=== PATIENT | male | born 1960 | race Two or more races ===

== ENCOUNTER 2022-07-05 18:26 | Inpatient (IN) | payer OTHER ==
[~2022-07-05] VITALS: Ht 172.7 cm; Wt 70.0 kg
[2022-07-05] MEDS ORDERED: SODIUM CHLORIDE 0.9% 1,000 ML IV ONE ×2 (18:45)
[2022-07-05 19:54] LABS: Basophils # (auto) 0.1 10 ^3/uL (0-0.2); Basophils % (auto) 0.5 % (0.0-2.0); Eosinophils # (auto) 0.8 10 ^3/uL (0-0.8); Eosinophils % (auto) 7.1 % (0.0-7.0); Hematocrit 38.7 % (41.0-53.0); Hemoglobin 12.4 g/dL (13.5-17.5); Lymphocytes # (auto) 1.6 10 ^3/uL (0.4-5.4); Lymphocytes % (auto) 14.3 % (10.0-50.0); Mean Corpuscular Hemoglobin 29.5 pg (28.0-32.0); Mean Corpuscular Volume 92.2 fL (80.0-100.0); Monocytes # (auto) 0.7 10 ^3/uL (0-1.3); Monocytes % (auto) 6.2 % (0.0-12.0); Neutrophils # (auto) 8.1 10 ^3/uL (1.6-8.6); Neutrophils % (auto) 71.9 % (37.0-80.0); Nucleated Red Blood Cells % 0.1 %; Red Cell Distribution Width 17.2 % (11.8-14.3); White Blood Cell 11.3 10^3/uL (4.4-10.8)
[2022-07-05 20:09] LABS: Calcium 9.9 mg/dL (8.5-10.1); Potassium 4.3 mmol/L (3.5-5.1)
[2022-07-05 20:14] LABS: BUN/Creatinine Ratio 40.7; Bilirubin, Total 0.6 mg/dL (0.2-1.0)
[2022-07-05] MEDS ORDERED: MORPHINE SULFATE INJ 2 MG/ml SYRG IV PRN (23:45)
[2022-07-05] MEDS ORDERED: ONDANSETRON HCL 4 MG/2 ML VIAL IV PRN (23:45)
[2022-07-05] MEDS ORDERED: ACETAMINOPHEN 325 MG TAB PO PRN (23:45)
[2022-07-05] MEDS ORDERED: D5W/LACTATED RINGERS 1,000 ML IV SCH (23:45)
[2022-07-05] MEDS ORDERED: cefTRIAXone 1GM/50ML D5W 50 ML IV ONE (23:45)
[2022-07-05] MEDS ORDERED: ALBUMIN 25% 100 ML IV ONE (23:45)
[2022-07-05] MEDS ORDERED: NITROGLYCERIN 0.4 MG SL TAB SL PRN (23:45)
[2022-07-05] MEDS ORDERED: HYDROcodone-ACET 5/325MG TAB PO PRN (23:45)
[2022-07-06 04:29] LABS: Basophils # (auto) 0.1 10 ^3/uL (0-0.2); Basophils % (auto) 0.6 % (0.0-2.0); Eosinophils # (auto) 0.5 10 ^3/uL (0-0.8); Eosinophils % (auto) 4.6 % (0.0-7.0); Hematocrit 37.8 % (41.0-53.0); Hemoglobin 12.4 g/dL (13.5-17.5); Lymphocytes # (auto) 1.4 10 ^3/uL (0.4-5.4); Lymphocytes % (auto) 13.1 % (10.0-50.0); Mean Corpuscular Hemoglobin 30.1 pg (28.0-32.0); Mean Corpuscular Hgb Conc. 32.7 g/dL (32.0-36.0); Monocytes # (auto) 0.9 10 ^3/uL (0-1.3); Monocytes % (auto) 8.4 % (0.0-12.0); Neutrophils % (auto) 73.3 % (37.0-80.0); Nucleated Red Blood Cells % 0.1 %; Red Blood Cells 4.11 10^6/uL (4.5-5.90); Red Cell Distribution Width 17.3 % (11.8-14.3); White Blood Cell 10.9 10^3/uL (4.4-10.8)
[2022-07-06 04:53] LABS: Albumin 2.8 g/dL (3.4-5.0); Calcium 10.3 mg/dL (8.5-10.1); Potassium 4.1 mmol/L (3.5-5.1)
[2022-07-06 04:57] LABS: BUN/Creatinine Ratio 40.9; Bilirubin, Total 0.5 mg/dL (0.2-1.0); Total Protein 8.3 g/dL (6.4-8.2)
[2022-07-06] MEDS ORDERED: IOHEXOL 350 MG/ML 100ML IJ ONE (05:46)
[2022-07-06] MEDS ORDERED: cefTRIAXone 1GM/50ML D5W 50 ML IV SCH (08:00)
[2022-07-06] MEDS ORDERED: HEPARIN SODIUM (PORCINE) 5000 UNITS/ML 1ML VIAL IV ONE ×2 (09:30→09:45)
[2022-07-06] MEDS ORDERED: HEPARIN DRIP/D5W 100UNITS/ML 250 ML IV SCH (09:46)
[2022-07-06] MEDS ORDERED: ENOXAPARIN SOD 40 MG/0.4 ML SYRINGE SC SCH (10:00)
[2022-07-06] MEDS: FAMOTIDINE (10MG/ML) 2ML VL IV SCH ×2 (10:32→22:05)
[2022-07-06 10:43] LABS: Basophils # (auto) 0.1 10 ^3/uL (0-0.2); Basophils % (auto) 0.6 % (0.0-2.0); Eosinophils # (auto) 0.4 10 ^3/uL (0-0.8); Hematocrit 35.8 % (41.0-53.0); Hemoglobin 11.4 g/dL (13.5-17.5); Lymphocytes # (auto) 1.2 10 ^3/uL (0.4-5.4); Lymphocytes % (auto) 13.5 % (10.0-50.0); Mean Corpuscular Hemoglobin 29.5 pg (28.0-32.0); Mean Corpuscular Hgb Conc. 31.9 g/dL (32.0-36.0); Mean Corpuscular Volume 92.5 fL (80.0-100.0); Monocytes # (auto) 0.7 10 ^3/uL (0-1.3); Monocytes % (auto) 7.9 % (0.0-12.0); Neutrophils # (auto) 6.2 10 ^3/uL (1.6-8.6); Red Blood Cells 3.87 10^6/uL (4.5-5.90); Red Cell Distribution Width 16.9 % (11.8-14.3); White Blood Cell 8.6 10^3/uL (4.4-10.8)
[2022-07-06 10:53] LABS: Urine Bacteria NONE SEEN /hpf (None Seen); Urine Blood TRACE /uL (Negative); Urine Budding Yeast LOADED /hpf (None Seen); Urine Mucus FEW (None Seen); Urine WBC 557 /hpf (0 - 3)
[2022-07-06 10:57] LABS: Urine Specific Gravity > 1.050 (1.001-1.035)
[2022-07-06 11:06] LABS: INR 1.03 (0.9-1.15); Partial Thromboplastin Time 25.2 sec (24.6-33.4)
[2022-07-06] MEDS: D5W/SOD CHL 0.45% 1,000 ML IV SCH (11:26)
[2022-07-06 18:20] VITALS: BP 121/81
[2022-07-06] MEDS ORDERED: POTA10TA51 GT (18:55)
[2022-07-06] MEDS ORDERED: MET25T GT (18:55)
[2022-07-06] MEDS ORDERED: ASCO500T11 GT (18:55)
[2022-07-06] MEDS ORDERED: FAMO20TA10 GT (18:55)
[2022-07-06 19:04] VITALS: BP 121/81
[2022-07-06 22:00] VITALS: BP 121/79
[2022-07-06] MEDS: ENOXAPARIN SOD 60 MG/0.6 ML SYRINGE SC SCH (22:05)
[2022-07-07] MEDS: D5W/SOD CHL 0.45% 1,000 ML IV SCH ×2 (00:35→13:55)
[2022-07-07 05:00] VITALS: BP 112/73
[2022-07-07 08:30] VITALS: BP 136/70
[2022-07-07] MEDS: FAMOTIDINE (10MG/ML) 2ML VL IV SCH ×2 (10:06→22:26)
[2022-07-07] MEDS: ENOXAPARIN SOD 60 MG/0.6 ML SYRINGE SC SCH ×2 (10:06→12:37)
[2022-07-07 12:30] VITALS: BP 134/89
[2022-07-07 16:37] VITALS: BP 133/69
[2022-07-07 23:07] VITALS: BP 111/67
[2022-07-08] MEDS: D5W/SOD CHL 0.45% 1,000 ML IV SCH ×2 (03:15→16:35)
[2022-07-08 04:42] VITALS: BP 112/80
[2022-07-08 09:03] VITALS: BP 121/82
[2022-07-08] MEDS ORDERED: MIDAZOLAM HCL 2MG/2ML 2ml VIAL (1mg/ml) ONE (09:32)
[2022-07-08] MEDS ORDERED: fentaNYL CITRATE 100 MCG/2 ML VL ONE (09:32)
[2022-07-08] MEDS ORDERED: ceFAZolin 1GM VL ONE (09:33)
[2022-07-08] MEDS: PANTOPRAZOLE 40 MG/10 ML VIAL INJ IV SCH (10:00)
[2022-07-08] MEDS: ENOXAPARIN SOD 60 MG/0.6 ML SYRINGE SC SCH ×2 (10:00→19:31)
[2022-07-08] MEDS ORDERED: ONDANSETRON HCL 4 MG/2 ML VIAL IV PRN (10:15)
[2022-07-08] MEDS ORDERED: ERTAPENEM SOD INJ 1 GM in SODIUM CHL 0.9% 50 ML IV ONE (13:00)
[2022-07-08 13:37] VITALS: BP 116/83
[2022-07-08 16:49] VITALS: BP 129/82
[2022-07-08 22:19] VITALS: BP 133/87
[2022-07-09 04:38] VITALS: BP 130/86
[2022-07-09] MEDS: D5W/SOD CHL 0.45% 1,000 ML IV SCH ×7 (06:32→19:43)
[2022-07-09] MEDS: ERTAPENEM SOD INJ 1 GM in SODIUM CHL 0.9% 50 ML IV SCH (09:23)
[2022-07-09] MEDS: PANTOPRAZOLE 40 MG/10 ML VIAL INJ IV SCH (09:23)
[2022-07-09 09:24] VITALS: BP 124/81
[2022-07-09] MEDS: ENOXAPARIN SOD 60 MG/0.6 ML SYRINGE SC SCH ×2 (09:35→20:09)
[2022-07-09] MEDS ORDERED: Jevity 1.2 Cal/Fiber 1 Liter GT SCH (10:00)
[2022-07-09 12:49] LABS: Urine Bacteria MANY /hpf (None Seen); Urine Budding Yeast MANY /hpf (None Seen); Urine Mucus MODERATE (None Seen); Urine WBC 2113 /hpf (0 - 3); Urine WBC Clumps PRESENT /hpf (None Seen)
[2022-07-09 12:50] VITALS: BP 114/77
[2022-07-09 13:03] LABS: Urine Blood Trace /uL (Negative)
[2022-07-09] MEDS: FREE WATER GT SCH ×4 (13:45→22:57)
[2022-07-09 17:00] VITALS: BP 142/89
[2022-07-09] MEDS ORDERED: WARFARIN SODIUM 1 MG TAB PO ONE (17:00)
[2022-07-09 22:02] VITALS: BP 128/89
[2022-07-10] MEDS: FREE WATER GT SCH ×6 (02:00→22:28)
[2022-07-10 05:04] VITALS: BP 130/82
[2022-07-10 06:28] LABS: Basophils # (auto) 0 10 ^3/uL (0-0.2); Basophils % (auto) 0.2 % (0.0-2.0); Eosinophils # (auto) 0.5 10 ^3/uL (0-0.8); Eosinophils % (auto) 5.5 % (0.0-7.0); Hematocrit 32.7 % (41.0-53.0); Lymphocytes # (auto) 0.9 10 ^3/uL (0.4-5.4); Mean Corpuscular Hemoglobin 30.3 pg (28.0-32.0); Mean Corpuscular Hgb Conc. 33.6 g/dL (32.0-36.0); Mean Corpuscular Volume 90.1 fL (80.0-100.0); Monocytes # (auto) 0.7 10 ^3/uL (0-1.3); Monocytes % (auto) 7.8 % (0.0-12.0); Neutrophils # (auto) 7.1 10 ^3/uL (1.6-8.6); Neutrophils % (auto) 76.5 % (37.0-80.0); Nucleated Red Blood Cells % 0.1 %; Red Blood Cells 3.63 10^6/uL (4.5-5.90); Red Cell Distribution Width 16.2 % (11.8-14.3); White Blood Cell 9.3 10^3/uL (4.4-10.8)
[2022-07-10 06:43] LABS: INR 1.07 (0.9-1.15)
[2022-07-10 06:47] LABS: Calcium 8.9 mg/dL (8.5-10.1)
[2022-07-10 06:49] LABS: BUN/Creatinine Ratio 32.7
[2022-07-10 09:07] VITALS: BP 131/89
[2022-07-10] MEDS ORDERED: POTASSIUM EFFERVESENT TAB 25 MEQ GT ONE (09:45)
[2022-07-10] MEDS: PANTOPRAZOLE 40 MG/10 ML VIAL INJ IV SCH (10:01)
[2022-07-10] MEDS: ERTAPENEM SOD INJ 1 GM in SODIUM CHL 0.9% 50 ML IV SCH (10:01)
[2022-07-10] MEDS: ENOXAPARIN SOD 60 MG/0.6 ML SYRINGE SC SCH ×2 (10:01→22:26)
[2022-07-10 13:00] VITALS: BP 134/86
[2022-07-10 16:13] VITALS: BP 117/70
[2022-07-10] MEDS ORDERED: WARFARIN SODIUM 5 MG TAB PO ONE (17:00)
[2022-07-10 22:00] VITALS: BP 132/86
[2022-07-11 05:00] VITALS: BP 135/81
[2022-07-11 06:08] LABS: Basophils # (auto) 0 10 ^3/uL (0-0.2); Basophils % (auto) 0.5 % (0.0-2.0); Eosinophils # (auto) 0.5 10 ^3/uL (0-0.8); Hematocrit 31.8 % (41.0-53.0); Hemoglobin 10.4 g/dL (13.5-17.5); Lymphocytes % (auto) 12.9 % (10.0-50.0); Mean Corpuscular Hgb Conc. 32.8 g/dL (32.0-36.0); Mean Corpuscular Volume 91.5 fL (80.0-100.0); Monocytes # (auto) 0.5 10 ^3/uL (0-1.3); Monocytes % (auto) 6.9 % (0.0-12.0); Neutrophils # (auto) 5.6 10 ^3/uL (1.6-8.6); Neutrophils % (auto) 72.7 % (37.0-80.0); Red Blood Cells 3.47 10^6/uL (4.5-5.90); Red Cell Distribution Width 16.4 % (11.8-14.3); White Blood Cell 7.7 10^3/uL (4.4-10.8)
[2022-07-11 06:23] LABS: INR 1.12 (0.9-1.15)
[2022-07-11 06:24] LABS: BUN/Creatinine Ratio 25.4; Calcium 9.1 mg/dL (8.5-10.1); Potassium 3.3 mmol/L (3.5-5.1)
[2022-07-11] MEDS: FREE WATER GT SCH ×5 (06:24→22:22)
[2022-07-11 09:08] VITALS: BP 118/76
[2022-07-11] MEDS: ENOXAPARIN SOD 60 MG/0.6 ML SYRINGE SC SCH ×2 (09:21→22:17)
[2022-07-11] MEDS: PANTOPRAZOLE 40 MG/10 ML VIAL INJ IV SCH (09:21)
[2022-07-11] MEDS: ERTAPENEM SOD INJ 1 GM in SODIUM CHL 0.9% 50 ML IV SCH (09:21)
[2022-07-11] MEDS ORDERED: POTASSIUM EFFERVESENT TAB 25 MEQ GT ONE (09:45)
[2022-07-11 12:42] VITALS: BP 136/85
[2022-07-11] MEDS ORDERED: WARFARIN SODIUM 5 MG TAB PO ONE (17:00)
[2022-07-11 17:06] VITALS: BP 120/81
[2022-07-11] MEDS ORDERED: WARFARIN SODIUM 5 MG TAB GT ONE (18:12)
[2022-07-11 22:00] VITALS: BP 125/75
[2022-07-12] MEDS: FREE WATER GT SCH ×5 (02:43→17:40)
[2022-07-12 05:00] VITALS: BP 130/80
[2022-07-12 05:31] LABS: INR 1.24 (0.9-1.15); Partial Thromboplastin Time 36.2 sec (24.6-33.4)
[2022-07-12 05:49] LABS: BUN/Creatinine Ratio 26.9; Calcium 8.7 mg/dL (8.5-10.1)
[2022-07-12] MEDS: ERTAPENEM SOD INJ 1 GM in SODIUM CHL 0.9% 50 ML IV SCH (09:20)
[2022-07-12] MEDS: PANTOPRAZOLE 40 MG/10 ML VIAL INJ IV SCH (09:21)
[2022-07-12] MEDS: ENOXAPARIN SOD 60 MG/0.6 ML SYRINGE SC SCH (09:21)
[2022-07-12 13:00] VITALS: BP 136/85
[2022-07-12 17:00] VITALS: BP 118/79
[2022-07-12] MEDS ORDERED: WARFARIN SODIUM 5 MG TAB PO ONE (17:00)
[2022-07-12] MEDS ORDERED: WARFARIN SODIUM 5 MG TAB GT SCH (17:30)
[2022-07-12 22:00] VITALS: BP 126/86
[2022-07-13] MEDS: FREE WATER GT SCH ×8 (00:27→21:18)
[2022-07-13] MEDS: ENOXAPARIN SOD 60 MG/0.6 ML SYRINGE SC SCH ×3 (00:28→21:18)
[2022-07-13 03:33] LABS: INR 1.46 (0.9-1.15); Partial Thromboplastin Time 41.3 sec (24.6-33.4)
[2022-07-13 03:35] LABS: Basophils # (auto) 0 10 ^3/uL (0-0.2); Basophils % (auto) 0.5 % (0.0-2.0); Eosinophils # (auto) 0.5 10 ^3/uL (0-0.8); Eosinophils % (auto) 6.1 % (0.0-7.0); Hematocrit 31.3 % (41.0-53.0); Hemoglobin 10.3 g/dL (13.5-17.5); Lymphocytes # (auto) 1.4 10 ^3/uL (0.4-5.4); Lymphocytes % (auto) 16.8 % (10.0-50.0); Mean Corpuscular Hemoglobin 30.1 pg (28.0-32.0); Mean Corpuscular Volume 91.2 fL (80.0-100.0); Monocytes # (auto) 0.6 10 ^3/uL (0-1.3); Monocytes % (auto) 6.8 % (0.0-12.0); Neutrophils # (auto) 5.9 10 ^3/uL (1.6-8.6); Neutrophils % (auto) 69.8 % (37.0-80.0); Nucleated Red Blood Cells % 0.1 %; Red Blood Cells 3.43 10^6/uL (4.5-5.90); Red Cell Distribution Width 16.1 % (11.8-14.3); White Blood Cell 8.4 10^3/uL (4.4-10.8)
[2022-07-13 05:00] VITALS: BP 138/85
[2022-07-13 09:00] VITALS: BP 110/56
[2022-07-13] MEDS: PANTOPRAZOLE 40 MG/10 ML VIAL INJ IV SCH (11:17)
[2022-07-13] MEDS: ERTAPENEM SOD INJ 1 GM in SODIUM CHL 0.9% 50 ML IV SCH (11:18)
[2022-07-13 13:00] VITALS: BP 98/61
[2022-07-13] MEDS: Jevity 1.2 Cal/Fiber 1 Liter GT SCH (15:42)
[2022-07-13 16:49] VITALS: BP 123/74
[2022-07-13] MEDS ORDERED: WARFARIN SODIUM 2 MG TAB GT ONE (17:00)
[2022-07-13 19:14] VITALS: BP 123/74
[2022-07-13 22:00] VITALS: BP 125/75
[2022-07-14] MEDS: FREE WATER GT SCH ×6 (01:49→21:49)
[2022-07-14 05:00] VITALS: BP 138/85
[2022-07-14 05:33] LABS: INR 1.72 (0.9-1.15); Partial Thromboplastin Time 43.5 sec (24.6-33.4)
[2022-07-14] MEDS: ERTAPENEM SOD INJ 1 GM in SODIUM CHL 0.9% 50 ML IV SCH (09:22)
[2022-07-14] MEDS: ENOXAPARIN SOD 60 MG/0.6 ML SYRINGE SC SCH ×2 (09:22→21:46)
[2022-07-14] MEDS: PANTOPRAZOLE 40 MG/10 ML VIAL INJ IV SCH (09:22)
[2022-07-14 13:00] VITALS: BP 124/79
[2022-07-14 17:00] VITALS: BP 138/79
[2022-07-14] MEDS ORDERED: WARFARIN SODIUM 5 MG TAB PO ONE (17:00)
[2022-07-14] MEDS: Jevity 1.2 Cal/Fiber 1 Liter GT SCH (19:46)
[2022-07-14 21:51] VITALS: BP 109/62
[2022-07-15] MEDS: FREE WATER GT SCH ×6 (01:47→21:20)
[2022-07-15 04:34] VITALS: BP 118/63
[2022-07-15 07:56] LABS: Basophils # (auto) 0 10 ^3/uL (0-0.2); Basophils % (auto) 0.4 % (0.0-2.0); Eosinophils # (auto) 0.5 10 ^3/uL (0-0.8); Hematocrit 33.3 % (41.0-53.0); Hemoglobin 10.9 g/dL (13.5-17.5); Lymphocytes # (auto) 1.3 10 ^3/uL (0.4-5.4); Lymphocytes % (auto) 13.8 % (10.0-50.0); Mean Corpuscular Hemoglobin 29.8 pg (28.0-32.0); Mean Corpuscular Hgb Conc. 32.7 g/dL (32.0-36.0); Mean Corpuscular Volume 91.2 fL (80.0-100.0); Monocytes # (auto) 0.8 10 ^3/uL (0-1.3); Monocytes % (auto) 8.5 % (0.0-12.0); Neutrophils % (auto) 72.3 % (37.0-80.0); Red Blood Cells 3.65 10^6/uL (4.5-5.90); Red Cell Distribution Width 16.2 % (11.8-14.3); White Blood Cell 9.6 10^3/uL (4.4-10.8)
[2022-07-15 08:00] VITALS: BP 113/80
[2022-07-15 08:11] LABS: INR 1.92 (0.9-1.15)
[2022-07-15] MEDS: PANTOPRAZOLE 40 MG/10 ML VIAL INJ IV SCH (11:30)
[2022-07-15] MEDS: ERTAPENEM SOD INJ 1 GM in SODIUM CHL 0.9% 50 ML IV SCH (11:30)
[2022-07-15 12:00] VITALS: BP 86/46
[2022-07-15 12:30] VITALS: BP 104/69
[2022-07-15] MEDS: AMPICILLIN INJ 1 GM in SODIUM CHL 0.9% 50 ML IV SCH ×2 (13:14→21:20)
[2022-07-15 16:00] VITALS: BP 109/49
[2022-07-15] MEDS ORDERED: WARFARIN SODIUM 5 MG TAB GT ONE (17:00)
[2022-07-15 22:00] VITALS: BP 110/71
[2022-07-16] MEDS: FREE WATER GT SCH ×3 (02:00→11:02)
[2022-07-16 05:00] VITALS: BP 97/51
[2022-07-16] MEDS: AMPICILLIN INJ 1 GM in SODIUM CHL 0.9% 50 ML IV SCH (05:28)
[2022-07-16 08:07] LABS: INR 2.4 (0.9-1.15)
[2022-07-16 09:00] VITALS: BP 106/52
[2022-07-16] MEDS ORDERED: AMPI500C8 PO (10:14)
[2022-07-16] MEDS: ERTAPENEM SOD INJ 1 GM in SODIUM CHL 0.9% 50 ML IV SCH (10:49)
[2022-07-16] MEDS: PANTOPRAZOLE 40 MG/10 ML VIAL INJ IV SCH (10:49)
[2022-07-16 12:06] VITALS: BP 106/52
[2022-07-16 12:47] VITALS: BP 119/77
[2022-07-16] MEDS ORDERED: WARFARIN SODIUM 5 MG TAB GT ONE (17:00)
== END 2022-07-16 14:00 | disposition hospice, home (50) | DRG 720 ==
LOC: EDBD 18:26 → ER 18:26 → TELE 23:56 → TELE-CENTR 07-06 18:20 → CENTRAL 07-11 11:40
PROVIDERS: ADMIT Nurse Practitioner Family; ATTEND Internal Medicine
PROC: 05H933Z Insertion of Infusion Device into Right Brachial Vein, Percutaneous Approach (ICD-10-PCS; 2022-07-08)
PROC: B54MZZA Ultrasonography of Right Upper Extremity Veins, Guidance (ICD-10-PCS; 2022-07-08)
PROC: 3E0G76Z Introduction of Nutritional Substance into Upper GI, Via Natural or Artificial Opening (ICD-10-PCS; principal; 2022-07-08 09:30)
DX: A41.9 Sepsis, unspecified organism (principal); I26.99 Other pulmonary embolism without acute cor pulmonale; E87.0 Hyperosmolality and hypernatremia; L89.159 Pressure ulcer of sacral region, unspecified stage; D63.8 Anemia in other chronic diseases classified elsewhere; E87.1 Hypo-osmolality and hyponatremia; E88.09 Other disorders of plasma-protein metabolism, not elsewhere classified; E86.0 Dehydration; Z66 Do not resuscitate; N39.0 Urinary tract infection, site not specified; K29.70 Gastritis, unspecified, without bleeding; B95.2 Enterococcus as the cause of diseases classified elsewhere; Z51.5 Encounter for palliative care; Z16.12 Extended spectrum beta lactamase (ESBL) resistance; K94.23 Gastrostomy malfunction; K40.20 Bilateral inguinal hernia, without obstruction or gangrene, not specified as recurrent; K57.30 Diverticulosis of large intestine without perforation or abscess without bleeding; R13.10 Dysphagia, unspecified; R79.89 Other specified abnormal findings of blood chemistry; Z20.822 Contact with and (suspected) exposure to COVID-19; Y83.3 Surgical operation with formation of external stoma as the cause of abnormal reaction of the patient, or of later complication, without mention of misadventure at the time of the procedure; I10 Essential (primary) hypertension; I25.10 Atherosclerotic heart disease of native coronary artery without angina pectoris; B96.1 Klebsiella pneumoniae [K. pneumoniae] as the cause of diseases classified elsewhere; B96.4 Proteus (mirabilis) (morganii) as the cause of diseases classified elsewhere; I25.2 Old myocardial infarction; I69.320 Aphasia following cerebral infarction; Z90.49 Acquired absence of other specified parts of digestive tract; Z86.711 Personal history of pulmonary embolism
CPT/HCPCS: 36415; 71045; 71275; 74176; 80048; 80053; 81001; 83880; 84484; 85025; 85379; 85610; 85730; 86850; 86900; 86901; 87077; 87186; 87205; 87426; 96361; 96365; 96368; C9113; G0378; J0690; J0696; J1335; J2250; J3490; J7042; P9047

== ENCOUNTER 2023-02-03 16:45 | Emergency (ER) | payer OTHER ==
[~2023-02-03] VITALS: Ht 172.7 cm; Wt 68.2 kg
[~2023-02-03 16:45] MED LIST: AMPI500C9 PO; ASCO500T11 GT; FAMO20TA10 GT; MET25T GT; POTA10TA51 GT
[2023-02-03] MEDS ORDERED: GASTROGRAFIN 30 ML SOL ONE (19:14)
[2023-02-04 08:00] VITALS: BP 118/68
== END 2023-02-04 12:31 | disposition home or self-care (01) ==
LOC: EDBD 16:45 → ER 16:45
DX: I10 Essential (primary) hypertension (principal); Z93.1 Gastrostomy status; Z86.73 Personal history of transient ischemic attack (TIA), and cerebral infarction without residual deficits; Z88.1 Allergy status to other antibiotic agents
CPT/HCPCS: 74018; 99283; Q9963

== ENCOUNTER 2024-01-14 16:13 | Inpatient (IN) | payer OTHER ==
[~2024-01-14] VITALS: Ht 170.2 cm; Wt 66.5 kg
[~2024-01-14 16:13] MED LIST changes: +POTA-36 GT; -POTA10TA51 GT
[2024-01-14] MEDS ORDERED: SODIUM CHLORIDE 0.9% 1,000 ML IV ONE (16:45)
[2024-01-14 17:00] VITALS: PULSE 61; RESP 16; O2SAT 100
[2024-01-14 17:34] LABS: Basophils # (auto) 0 10 ^3/uL (0-0.2); Basophils % (auto) 0.4 % (0.0-2.0); Chloride 106 mmol/L (98-107); Eosinophils # (auto) 0.2 10 ^3/uL (0-0.8); Hematocrit 30.3 % (41.0-53.0); Lymphocytes # (auto) 0.9 10 ^3/uL (0.4-5.4); Lymphocytes % (auto) 10.3 % (10.0-50.0); Mean Corpuscular Hemoglobin 32.1 pg (28.0-32.0); Mean Corpuscular Volume 97.1 fL (80.0-100.0); Monocytes # (auto) 0.6 10 ^3/uL (0-1.3); Monocytes % (auto) 6.8 % (0.0-12.0); Neutrophils # (auto) 6.7 10 ^3/uL (1.6-8.6); Neutrophils % (auto) 80.5 % (37.0-80.0); Nucleated Red Blood Cells % 0.1 %; Potassium 4.6 mmol/L (3.5-5.1); Red Blood Cells 3.12 10^6/uL (4.5-5.90); Red Cell Distribution Width 11.9 % (11.8-14.3); White Blood Cell 8.3 10^3/uL (4.4-10.8)
[2024-01-14 17:35] LABS: Anion Gap 4 (5-15); Carbon Dioxide 32 mmol/L (20-30); Sodium 142 mmol/L (136-145)
[2024-01-14 17:36] LABS: Calcium 9.8 mg/dL (8.5-10.1)
[2024-01-14 17:41] LABS: BUN/Creatinine Ratio 33.3 (10.0-20.0); Blood Urea Nitrogen 31 mg/dL (9-23); Glucose 95 mg/dL (74-106)
[2024-01-14 17:42] LABS: INR 1.05 (0.9-1.15); Partial Thromboplastin Time 27.3 SEC (24.5-34.5); Prothrombin Time 11.1 sec (9.3-11.8)
[2024-01-14] MEDS ORDERED: MORPHINE SULFATE INJ 2 MG/ml SYRG IV PRN (18:45)
[2024-01-14] MEDS ORDERED: ONDANSETRON HCL 4 MG/2 ML VIAL IV PRN (18:45)
[2024-01-14 20:00] VITALS: PULSE 70; RESP 16; O2SAT 100
[2024-01-14] MEDS: SODIUM CHLORIDE 0.9% 1,000 ML IV SCH (20:15)
[2024-01-15 01:20] VITALS: BP 102/58; PULSE 67; PULSE 69; RESP 18; TEMP 98.5; O2SAT 96
[2024-01-15 05:00] VITALS: BP 107/62; PULSE 61; RESP 18; TEMP 98.5; O2SAT 95
[2024-01-15 07:05] LABS: Basophils # (auto) 0 10 ^3/uL (0-0.2); Basophils % (auto) 0.4 % (0.0-2.0); Eosinophils # (auto) 0.1 10 ^3/uL (0-0.8); Eosinophils % (auto) 1.5 % (0.0-7.0); Hematocrit 27.3 % (41.0-53.0); Hemoglobin 9.2 g/dL (13.5-17.5); Lymphocytes # (auto) 1.1 10 ^3/uL (0.4-5.4); Lymphocytes % (auto) 13.9 % (10.0-50.0); Mean Corpuscular Hemoglobin 32.7 pg (28.0-32.0); Mean Corpuscular Hgb Conc. 33.6 g/dL (32.0-36.0); Mean Corpuscular Volume 97.5 fL (80.0-100.0); Monocytes # (auto) 0.6 10 ^3/uL (0-1.3); Monocytes % (auto) 7.6 % (0.0-12.0); Neutrophils # (auto) 6.3 10 ^3/uL (1.6-8.6); Neutrophils % (auto) 76.6 % (37.0-80.0); Nucleated Red Blood Cells % 0.1 %; Red Cell Distribution Width 12.2 % (11.8-14.3); White Blood Cell 8.2 10^3/uL (4.4-10.8)
[2024-01-15 07:09] LABS: Alanine Aminotransferase 47 U/L (7-40); Albumin 3.5 g/dL (3.2-4.8); Alkaline Phosphatase 98 U/L (46-116); Anion Gap 6 (5-15); Aspartate Aminotransferase 28 U/L (13-40); BUN/Creatinine Ratio 25.5 (10.0-20.0); Bilirubin, Total 0.3 mg/dL (0.2-1.0); Blood Urea Nitrogen 24 mg/dL (9-23); Calcium 9.8 mg/dL (8.5-10.1); Carbon Dioxide 27 mmol/L (20-30); Chloride 108 mmol/L (98-107); Glucose 80 mg/dL (74-106); Sodium 141 mmol/L (136-145); Total Protein 7.4 g/dL (5.7-8.2)
[2024-01-15 08:00] VITALS: RESP 16; O2SAT 100
[2024-01-15 09:00] VITALS: BP 102/56; PULSE 55; RESP 15; TEMP 98.4; O2SAT 99
[2024-01-15] MEDS: PANTOPRAZOLE 40 MG/10 ML VIAL INJ IV SCH (11:41)
[2024-01-15 20:00] VITALS: RESP 16; O2SAT 100
[2024-01-15 22:00] VITALS: BP 112/67; PULSE 93; RESP 18; TEMP 98.2; O2SAT 100
[2024-01-16] VITALS (10 sets, daily range): BP systolic 100–123; BP diastolic 48–66; PULSE 55–82; RESP 16–20; TEMP 98.1–98.9; O2SAT 94–100
[2024-01-16 06:03] LABS: Basophils # (auto) 0.1 10 ^3/uL (0-0.2); Basophils % (auto) 0.6 % (0.0-2.0); Eosinophils # (auto) 0.1 10 ^3/uL (0-0.8); Eosinophils % (auto) 1.3 % (0.0-7.0); Hematocrit 26.6 % (41.0-53.0); Hemoglobin 8.9 g/dL (13.5-17.5); Lymphocytes # (auto) 1.1 10 ^3/uL (0.4-5.4); Mean Corpuscular Hemoglobin 32.7 pg (28.0-32.0); Mean Corpuscular Hgb Conc. 33.6 g/dL (32.0-36.0); Mean Corpuscular Volume 97.2 fL (80.0-100.0); Monocytes # (auto) 0.5 10 ^3/uL (0-1.3); Neutrophils # (auto) 6.6 10 ^3/uL (1.6-8.6); Neutrophils % (auto) 79.1 % (37.0-80.0); Nucleated Red Blood Cells % 0.1 %; Red Blood Cells 2.73 10^6/uL (4.5-5.90); Red Cell Distribution Width 11.9 % (11.8-14.3); White Blood Cell 8.4 10^3/uL (4.4-10.8)
[2024-01-16 06:14] LABS: Alanine Aminotransferase 35 U/L (7-40); Albumin 3.4 g/dL (3.2-4.8); Alkaline Phosphatase 92 U/L (46-116); Anion Gap 8 (5-15); Aspartate Aminotransferase 23 U/L (13-40); Bilirubin, Total 0.4 mg/dL (0.2-1.0); Blood Urea Nitrogen 31 mg/dL (9-23); Calcium 9.6 mg/dL (8.5-10.1); Carbon Dioxide 25 mmol/L (20-30); Chloride 112 mmol/L (98-107); Glucose 64 mg/dL (74-106); Sodium 145 mmol/L (136-145); Total Protein 7.1 g/dL (5.7-8.2)
[2024-01-16 06:19] LABS: BUN/Creatinine Ratio 31.6 (10.0-20.0)
[2024-01-16] MEDS: D5W/SOD CHLO 0.9% 1,000 ML IV SCH (09:30)
[2024-01-17] VITALS (12 sets, daily range): BP systolic 101–127; BP diastolic 38–67; PULSE 36–91; RESP 12–20; TEMP 96.2–98.6; O2SAT 93–100
[2024-01-17 00:20] LABS: Urine Amorphous Crystal FEW /hpf (None Seen); Urine Bacteria FEW /hpf (None Seen); Urine Blood 1+ /uL (Negative); Urine Clarity Ex.Turbid (Clear); Urine Color Dark-Brown (Yellow); Urine Mucus FEW (None Seen); Urine Protein, UAD 1+ (Negative); Urine Specific Gravity 1.024 (1.001-1.035); Urine Urobilinogen Normal (Negative); Urine WBC 6 /hpf (0 - 3); Urine pH 7.5 (5.0-9.0)
[2024-01-17] MEDS: cefTRIAXone 1GM/50ML D5W 50 ML IV ONE (01:56)
[2024-01-17] MEDS: cefTRIAXone 1GM/50ML D5W 50 ML IV SCH (10:10)
[2024-01-17] MEDS ORDERED: fentaNYL CITRATE 100 MCG/2 ML VL ONE (14:16)
[2024-01-17] MEDS ORDERED: MIDAZOLAM HCL 2MG/2ML 2ml VIAL (1mg/ml) ONE (14:16)
[2024-01-17] MEDS ORDERED: PROPOFOL 10 MG/ML 20 ML IV ONE (15:05)
[2024-01-17] MEDS: ONDANSETRON HCL 4 MG/2 ML VIAL IV ONE (15:30)
[2024-01-17] MEDS: Jevity 1.2 Cal/Fiber 1 Liter GT SCH (18:30)
[2024-01-18] VITALS (8 sets, daily range): BP systolic 103–131; BP diastolic 47–78; PULSE 54–58; RESP 14–17; TEMP 97.3–98.4; O2SAT 95–99
[2024-01-19] VITALS (8 sets, daily range): BP systolic 99–135; BP diastolic 56–76; PULSE 59–84; RESP 12–17; TEMP 98–99.3; O2SAT 95–99
[2024-01-19] MEDS ORDERED: Jevity 1.2 Cal/Fiber 1 Liter GT SCH (11:45)
[2024-01-20] VITALS (7 sets, daily range): BP systolic 112–139; BP diastolic 52–73; PULSE 53–61; RESP 12–17; TEMP 97.3–98.5; O2SAT 93–100
[2024-01-20] MEDS: ERTAPENEM SOD INJ 1 GM in SODIUM CHL 0.9% 50 ML IV ONE (10:45)
[2024-01-20] MEDS ORDERED: MORPHINE SULFATE 4 MG/ML SYR/VIAL IV PRN (20:30)
[2024-01-21 01:00] VITALS: BP 119/61; PULSE 51; RESP 19; O2SAT 94
[2024-01-21 05:00] VITALS: BP 116/69; PULSE 57; RESP 19; O2SAT 98
[2024-01-21 09:00] VITALS: BP 111/64; PULSE 55; RESP 12; TEMP 98.2; O2SAT 99
[2024-01-21] MEDS: ERTAPENEM SOD INJ 1 GM in SODIUM CHL 0.9% 50 ML IV SCH (12:26)
[2024-01-21 12:37] VITALS: BP 101/60; PULSE 52; RESP 16; TEMP 97.8; O2SAT 1; O2SAT 100
[2024-01-21 15:39] VITALS: TEMP 36.6
[2024-01-21 17:00] VITALS: BP 134/82; PULSE 58; RESP 12; TEMP 97.4; O2SAT 98
== END 2024-01-21 20:20 | disposition home health service (06) | DRG 393 ==
LOC: ER 16:13 → EDBD 16:13 → OVERFLOW 18:44 → EAST 22:56 → TELE-EAST 01-17 22:15 → EAST 01-18 22:30
PROVIDERS: ADMIT Nurse Practitioner Family; ATTEND Internal Medicine
PROC: 0DH68UZ Insertion of Feeding Device into Stomach, Via Natural or Artificial Opening Endoscopic (ICD-10-PCS; 2024-01-17)
PROC: 0DP6XUZ Removal of Feeding Device from Stomach, External Approach (ICD-10-PCS; principal; 2024-01-17 14:45)
PROC: 05HB33Z Insertion of Infusion Device into Right Basilic Vein, Percutaneous Approach (ICD-10-PCS; 2024-01-20)
PROC: B54MZZA Ultrasonography of Right Upper Extremity Veins, Guidance (ICD-10-PCS; 2024-01-20)
DX: K94.23 Gastrostomy malfunction (principal); L89.894 Pressure ulcer of other site, stage 4; E46 Unspecified protein-calorie malnutrition; J96.11 Chronic respiratory failure with hypoxia; N39.0 Urinary tract infection, site not specified; R47.01 Aphasia; I10 Essential (primary) hypertension; D53.9 Nutritional anemia, unspecified; Z66 Do not resuscitate; E16.2 Hypoglycemia, unspecified; R13.10 Dysphagia, unspecified; B96.4 Proteus (mirabilis) (morganii) as the cause of diseases classified elsewhere; I25.10 Atherosclerotic heart disease of native coronary artery without angina pectoris; Z86.73 Personal history of transient ischemic attack (TIA), and cerebral infarction without residual deficits; Z79.2 Long term (current) use of antibiotics; Z79.899 Other long term (current) drug therapy; Z74.01 Bed confinement status; Z90.49 Acquired absence of other specified parts of digestive tract; Z68.23 Body mass index [BMI] 23.0-23.9, adult; Z99.81 Dependence on supplemental oxygen
CPT/HCPCS: 36415; 71045; 80048; 80053; 81001; 82962; 84484; 85025; 85610; 85730; 86850; 86900; 86901; 87086; 87088; 87186; 93005; C9113; G0378; J1335; J2250; J2704; J7042